=== PATIENT | female | born 1965 | race American Indian/Alaskan Native ===

== ENCOUNTER 2017-03-03 07:12 | Emergency (ER) | payer BC, MEDICAID ==
--- NOTE | 2017-03-03 08:09 | XRay Report ---
Right femur 2 views: History: Fall. Right thigh pain. Findings: There is total hip replacement noted. Stable arthroplasty. No dislocation or fracture. Patient is status post transfemoral supracondylar amputation. Impression: No definite acute abnormality.
[2017-03-03] MEDS ORDERED: FLEXERIL PO ONE (10:50)
[2017-03-03] MEDS ORDERED: TORADOL IM ONE (10:50)
[2017-03-03] MEDS ORDERED: NORCO 7.5/325 PO ONE (10:50)
--- NOTE | 2017-03-03 11:39 | Emergency Department Report ---
ED Fall HPI - General Chief Complaint: Fall Stated Complaint: FALL/RT STUB Source: patient Mode of arrival: Wheelchair - Related Data Allergies Allergy/AdvReac Type Severity Reaction Status Date / Time erythromycin base Allergy Itching Verified 03/03/17 07:35 Penicillins Allergy Swelling Verified 03/03/17 07:35 Sulfa (Sulfonamide Allergy Itching Verified 03/03/17 07:35 Antibiotics) ED Review of Systems ROS: Stated complaint: FALL/RT STUB Other details as noted in HPI ED Past Medical Hx - Past Medical History Hx Arthritis: Yes (osteoarthritis) Hx Seizures: Yes Hx Asthma: Yes - Surgical History Additional Surgical History: R AKA. RIGHT HIP REPLACEMENT. LEFT ROTATOR CUFF REPAIR. SKIN GRAFTING RIGHT THIGH. HYSTERECTOMY - Social History Smoking Status: Former Smoker Substance Use Type: Prescribed ED Physical Exam - General Limitations: Physical Limitation ED Course Vital Signs 03/03/17 03/03/17 03/03/17 07:27 09:27 11:18 Temperature 98.4 F 98.4 F Pulse Rate 93 H 78 Respiratory 19 18 19 Rate Blood Pressure 102/71 Blood Pressure 102/77 [Left] O2 Sat by Pulse 97 97 Oximetry 03/03/17 11:19 Temperature Pulse Rate Respiratory 19 Rate Blood Pressure Blood Pressure [Left] O2 Sat by Pulse Oximetry Critical care attestation.: If time is entered above; I have spent that time in minutes in the direct care of this critically ill patient, excluding procedure time. ED Disposition Condition: Stable Referrals: PRIMARY CARE [Primary Care Provider] - 3-5 Days
--- NOTE | 2017-03-03 12:15 | Emergency Department Report ---
Entered by LACHO GALEANA, acting as scribe for JYOTI JIMENEZ PA. ED Fall HPI - General Chief Complaint: Fall Stated Complaint: FALL/RT STUB Time Seen by Provider: 03/03/17 10:43 Source: patient Mode of arrival: Wheelchair Limitations: Physical Limitation - History of Present Illness Initial Comments: 51 y/o female presents to the ED c/o pain to right leg stump status post fall that occurred yesterday morning. Denies headache, head trauma, LOC, lesions, discoloration and back pain. Pain is described as stabbing and 4/10 on a severity scale. Patient states her crutches snapped causing her to fall down. No alleviating factors despite taking Tramadol and no aggravating factors. Allergic to erythromycin, penicillins and sulfa. MD Complaint: fall Onset/Timin -: days(s) Fall From: standing When Fall Occurred: # days [employer] (1) Fall Witnessed: yes, by family Place Fall Occurred: home Loss of Consciousness: none Prolonged Down Time?: no Symptoms Prior to Fall: none Location: other (right leg stump) Location - Extremities: Right: Leg Severity: mild Severity scale (0 -10): 4 Quality: stabbing Context: tripped/slipped, other (crutches snapped) Associated Symptoms: denies: headache, neck pain, numbness, weakness, chest paint, shortness of breath, abdominal pain, hematuria, lightheaded, vertigo, confusion - Related Data Allergies Allergy/AdvReac Type Severity Reaction Status Date / Time erythromycin base Allergy Itching Verified 03/03/17 07:35 Penicillins Allergy Swelling Verified 03/03/17 07:35 Sulfa (Sulfonamide Allergy Itching Verified 03/03/17 07:35 Antibiotics) ED Review of Systems Comment: All other systems reviewed and negative Constitutional: denies: chills, fever Eyes: denies: eye pain, eye discharge, vision change ENT: denies: ear pain, throat pain Respiratory: denies: cough, shortness of breath, wheezing Cardiovascular: denies: chest pain, palpitations Endocrine: no symptoms reported Gastrointestinal: denies: abdominal pain, nausea, diarrhea Genitourinary: denies: urgency, dysuria, discharge Musculoskeletal: arthralgia. denies: back pain Skin: denies: lesions, change in color Neurological: denies: headache, numbness, paresthesias, confusion, other (head trauma, LOC) Psychiatric: denies: anxiety, depression Hematological/Lymphatic: denies: easy bleeding, easy bruising ED Past Medical Hx - Past Medical History Hx Arthritis: Yes (osteoarthritis) Hx Seizures: Yes Hx Asthma: Yes - Surgical History Additional Surgical History: R AKA. RIGHT HIP REPLACEMENT. LEFT ROTATOR CUFF REPAIR. SKIN GRAFTING RIGHT THIGH. HYSTERECTOMY - Social History Smoking Status: Former Smoker Substance Use Type: Prescribed ED Physical Exam - General Limitations: Physical Limitation General appearance: alert, in no apparent distress - Head Head exam: Present: atraumatic, normocephalic, normal inspection - Eye Eye exam: Present: normal appearance, PERRL, EOMI. Absent: scleral icterus, conjunctival injection, nystagmus, periorbital swelling, periorbital tenderness Pupils: Present: normal accommodation - ENT ENT exam: Present: normal exam, normal orophraynx, mucous membranes moist, TM's normal bilaterally, normal external ear exam - Neck Neck exam: Present: normal inspection, full ROM. Absent: tenderness, meningismus, lymphadenopathy, thyromegaly - Respiratory Respiratory exam: Present: normal lung sounds bilaterally. Absent: respiratory distress, wheezes, rales, rhonchi, stridor, chest wall tenderness, accessory muscle use, decreased breath sounds, prolonged expiratory - Cardiovascular Cardiovascular Exam: Present: regular rate, normal rhythm, normal heart sounds. Absent: bradycardia, tachycardia, irregular rhythm, systolic murmur, diastolic murmur, rubs, gallop - GI/Abdominal GI/Abdominal exam: Present: soft, normal bowel sounds. Absent: distended, tenderness, guarding, rebound, rigid, diminished bowel sounds - Extremities Exam Extremities exam: Present: normal inspection, full ROM, tenderness (mild tenderness to right leg stump). Absent: joint swelling - Back Exam Back exam: Present: normal inspection, full ROM. Absent: tenderness, CVA tenderness (R), CVA tenderness (L), muscle spasm, paraspinal tenderness, vertebral tenderness, rash noted - Neurological Exam Neurological exam: Present: alert, oriented X3 - Psychiatric Psychiatric exam: Present: normal affect, normal mood - Skin Skin exam: Present: warm, dry, intact, normal color. Absent: rash ED Course Vital Signs 03/03/17 03/03/17 03/03/17 07:27 09:27 11:18 Temperature 98.4 F 98.4 F Pulse Rate 93 H 78 Respiratory 19 18 19 Rate Blood Pressure 102/71 Blood Pressure 102/77 [Left] O2 Sat by Pulse 97 97 Oximetry 03/03/17 11:19 Temperature Pulse Rate Respiratory 19 Rate Blood Pressure Blood Pressure [Left] O2 Sat by Pulse Oximetry ED Medical Decision Making - Radiology Data Radiology results: report reviewed XR Femur No definite acute abnormality. - Medical Decision Making 51 year old female presents to ED with mechanical fall and right leg pain at amputation site. patient has no acute findings on imaging. patient is stable, neurologically intact and in no acute distress. patient has decreased pain after medication during ED visit. ED Disposition Clinical Impression: Fall Qualifiers: Encounter type: initial encounter Qualified Code(s): W19.XXXA - Unspecified fall, initial encounter Disposition: - TO HOME OR SELFCARE Is pt being admited?: No Does the pt Need Aspirin: No Condition: Stable Prescriptions: Meloxicam [Mobic] 7.5 mg PO QDAY #5 tablet methOCARBAMOL [Robaxin TAB] 500 mg PO TID #21 tab Referrals: PRIMARY CARE, [Primary Care Provider] - 3-5 Days This documentation as recorded by the LISSETT asencio ELIZABETH,accurately reflects the service I personally performed and the decisions made by ,JYOTI JIMENEZ PA.
[2017-03-03 12:25] VITALS: BP 107/72
== END 2017-03-03 12:26 | disposition home or self-care (01) ==
LOC: ED 07:12
DX: M79.604 Pain in right leg (principal); W18.30XA Fall on same level, unspecified, initial encounter; Y93.9 Activity, unspecified; Y92.9 Unspecified place or not applicable; Y99.9 Unspecified external cause status; J45.909 Unspecified asthma, uncomplicated
CPT/HCPCS: 73552; 96372; 99284; J1885

== ENCOUNTER 2021-10-16 12:07 | Emergency (ER) | payer BC, MEDICAID ==
[2021-10-16 12:18] VITALS: BP 134/88
--- NOTE | 2021-10-16 16:40 | Emergency Department Report ---
- General Chief Complaint: Extremity Problem,Nontraumatic Stated Complaint: HEMMORRHAGE RT LEG Time Seen by Provider: 10/16/21 15:58 Source: EMS Mode of arrival: Stretcher Limitations: Physical Limitation - History of Present Illness Initial Comments: 36-year-old female presents emergency department for evaluation of leg wound on her right stump for which she had a surgical procedure done on October 09, 2021 and the sutures removed a few days ago. States that she noticed some redness on the pad where the sutures were removed but is unsure if it was bloody fluid or her red TEA that she had spilled. Nonetheless she reports no pain, no fever, chills, sweats. No extremity swelling. No known recent traumatic injuries to the surgery site. -: Gradual Extremity Location: Right: Thigh Place: home Context: other Associated Symptoms: none - Related Data Previous Rx's Medication Instructions Recorded Last Taken Type Meloxicam [Mobic] 7.5 mg PO QDAY #5 tablet 03/03/17 Unknown Rx methOCARBAMOL [Robaxin TAB] 500 mg PO TID #21 tab 03/03/17 Unknown Rx Allergies Allergy/AdvReac Type Severity Reaction Status Date / Time erythromycin base Allergy Itching Verified 10/16/21 12:19 Penicillins Allergy Swelling Verified 10/16/21 12:19 Sulfa (Sulfonamide Allergy Itching Verified 10/16/21 12:19 Antibiotics) ED Review of Systems ROS: Stated complaint: HEMMORRHAGE RT LEG Other details as noted in HPI Comment: All other systems reviewed and negative ED Past Medical Hx - Past Medical History Hx Arthritis: Yes (osteoarthritis) Hx Seizures: Yes Hx Asthma: Yes - Surgical History Additional Surgical History: R AKA. RIGHT HIP REPLACEMENT. LEFT ROTATOR CUFF REPAIR. SKIN GRAFTING RIGHT THIGH. HYSTERECTOMY - Social History Smoking Status: Former Smoker Substance Use Type: Prescribed - Medications Home Medications: Home Medications Medication Instructions Recorded Confirmed Last Taken Type Meloxicam [Mobic] 7.5 mg PO QDAY #5 tablet 03/03/17 Unknown Rx methOCARBAMOL [Robaxin TAB] 500 mg PO TID #21 tab 03/03/17 Unknown Rx ED Physical Exam - General Limitations: Physical Limitation General appearance: alert, in no apparent distress - Head Head exam: Present: atraumatic, normocephalic - Eye Eye exam: Present: normal appearance - Neck Neck exam: Present: normal inspection - Cardiovascular Cardiovascular Exam: Present: regular rate, normal rhythm. Absent: systolic murmur, diastolic murmur, rubs, gallop - Expanded Lower Extremity Exam Right 1 - Surgical site. No active bleeding or discharge from the wound with a significant amount amount of manipulation. No cellulitis is noted. No edema, no lymphangitis. No obvious retained sutures present - Neurological Exam Neurological exam: Present: CN II-XII intact ED Course Vital Signs 10/16/21 12:17 Temperature 98.9 F Pulse Rate 76 Respiratory 14 Rate Blood Pressure 134/88 [Right] O2 Sat by Pulse 100 Oximetry ED Medical Decision Making - Medical Decision Making 56-year-old female status post wound check from a surgical site on her right stump. No evidence of any active bleeding or infection found on examination. Wound was redressed and she was advised to follow-up with her surgeon at [facility] Dr. Poe Critical care attestation.: If time is entered above; I have spent that time in minutes in the direct care of this critically ill patient, excluding procedure time. ED Disposition Clinical Impression: Leg wound, right Disposition: 01 HOME / SELF CARE / HOMELESS Is pt being admited?: No Does the pt Need Aspirin: No Condition: Stable Instructions: Sutured Wound Care Additional Instructions: Leg was evaluated emergency department currently no evidence of any wound discharge, infection bleeding or any significant dehiscence.. Please follow-up with Dr. Poe so they can reevaluate your wound and help in the management during your healing process. For comfort purposes and protection your leg was redressed Referrals: [facility] [Provider Group] - 3-5 Days (Follow-up with your Dr. Poe) [facility] [Primary Care Provider] - 3-5 Days
== END 2021-10-16 16:52 | disposition home or self-care (01) ==
LOC: ED 12:07
DX: S81.801D Unspecified open wound, right lower leg, subsequent encounter (principal); Z48.00 Encounter for change or removal of nonsurgical wound dressing; M19.90 Unspecified osteoarthritis, unspecified site; R56.9 Unspecified convulsions; J45.909 Unspecified asthma, uncomplicated; Z98.890 Other specified postprocedural states; Z87.891 Personal history of nicotine dependence; X58.XXXD Exposure to other specified factors, subsequent encounter
CPT/HCPCS: 99283